=== PATIENT | male | born 1945 | race Caucasian/White ===

== ENCOUNTER → 2017-04-21 | Outpatient (CLI) | payer OTHER, BC ==
[~2017-04-21] MED LIST: COLACE100 MG PO; COUMADIN,JANTOVE1 MG PO; FEOSOL325 MG PO; Flonase BOTH NARES; NORVASC10 MG PO; OXYCONTIN10 MG PO; OxyCODONE PO; OxyCONTIN PO; PATANOL OP100 DROP/5 BOTH EYES; PRAVACHOL80 MG PO; SENOKOT S,PE1 TABLET PO; THERAGRAN1 TABLET PO; Tenormin PO; Tylenol Regular Stre PO; ZANTAC150 MG PO; ZEGERID20 MG PO; Zestril,Prinivil PO; Zyrtec PO; oxyCODONE PO
== END | disposition home or self-care (01) ==
LOC: NUC 08:46
DX: G20 Parkinson's disease (principal)
CPT/HCPCS: 78607; A9584

== ENCOUNTER → 2017-09-08 | Outpatient (CLI) | payer OTHER, BC | END | disposition home or self-care (01) | LOC: RAD 08:50 | PROC: B02 Imaging, Central Nervous System, Computerized Tomography (CT Scan) (ICD-10-PCS; principal; 2017-09-08) | PROC: 3E0R3HZ Introduction of Radioactive Substance into Spinal Canal, Percutaneous Approach (ICD-10-PCS; principal; 2017-09-08) | DX: R90.89 Other abnormal findings on diagnostic imaging of central nervous system (principal); R26.9 Unspecified abnormalities of gait and mobility | CPT/HCPCS: 77002; 78630; 78999; A9548 ==